=== PATIENT | male | born 1955 | race Caucasian/White ===

== ENCOUNTER → 2024-11-08 09:49 | Outpatient (CLI) | payer OTHER, SELFPAY ==
[2024-11-08 10:42] LABS: Influenza A - CEPHEID Flu A POSITIVE (NEGATIVE); Influenza B - CEPHEID Flu B NEGATIVE (NEGATIVE); Respiratory Syncytial Virus Negative (Negative)
[2024-11-08 10:43] LABS: COVID-19 CEPHEID 4-PLEX PCR Negative (Negative)
== END ==
PROVIDERS: Visit Provider Student in an Organized Health Care Education/Training Program
DX: R05.9 Cough, unspecified (principal)
CPT/HCPCS: 0241U